=== PATIENT | female | born 1985 | race Caucasian/White ===

== ENCOUNTER → 2022-03-17 12:38 | Outpatient (BNVA) | payer OTHER, SELFPAY | PROVIDERS: PCP Family Medicine; Visit Provider Family Medicine | DX: E66.9 Obesity, unspecified (principal); G43.909 Migraine, unspecified, not intractable, without status migrainosus; F41.9 Anxiety disorder, unspecified; Z98.890 Other specified postprocedural states | CPT/HCPCS: 80053; 80061; 84443; 85025 ==

== ENCOUNTER 2022-04-28 14:50 | Outpatient (CLI) | payer OTHER, SELFPAY ==
--- NOTE | 2022-04-28 15:01 | MM_ITS ---
WS: [id number] SCREENING DIGITAL TOMOSYNTHESIS MAMMOGRAM WITH CAD HISTORY: SCREENING COMPARISON: None available. Bilateral CC and MLO with tomosynthesis views submitted. Synthetic mammography reviewed. Computer aid ed detection analyzed. Breast composition: There are scattered areas of fibroglandular density. No suspicious masses, microc alcifications or architectural distortion. MM/[id number] IMPRESSION: BI-RADS: 1-Negative FOLLOW UP: 1 Year Follow-up
== END 2022-04-28 14:51 | disposition home or self-care (01) ==
LOC: RAD 14:50
PROVIDERS: PCP Family Medicine; Visit Provider Family Medicine
DX: Z12.31 Encounter for screening mammogram for malignant neoplasm of breast (principal)
CPT/HCPCS: 77063; 77067

== ENCOUNTER → 2022-08-10 08:45 | Outpatient (BNVA) | payer OTHER, SELFPAY | PROVIDERS: PCP Family Medicine; Visit Provider Family Medicine | DX: J02.0 Streptococcal pharyngitis (principal) | CPT/HCPCS: 87071; 87880 ==

== ENCOUNTER → 2024-04-25 10:53 | Outpatient (BNVA) | payer BC, SELFPAY | PROVIDERS: PCP Family Medicine; Visit Provider Family Medicine | DX: Z98.84 Bariatric surgery status (principal); Z90.3 Acquired absence of stomach [part of] | CPT/HCPCS: 80053; 80061; 82306; 82607; 83540; 85025 ==